=== PATIENT | female | born 1995 | race American Indian/Alaskan Native ===

== ENCOUNTER 2021-12-04 08:12 | Emergency (ER) | payer OTHER ==
[2021-12-04] MEDS ORDERED: Sodium Chloride 0.9% 10 ML Syringe FLUSH PRN (08:33)
[2021-12-04] MEDS ORDERED: Sodium Chloride 0.9% 1,000 ML IV ONE (08:33)
== END 2021-12-04 10:40 ==
LOC: JD.ED 08:12 → EDBD 08:12 → JD.ED 10:40
DX: T76.01XA Adult neglect or abandonment, suspected, initial encounter (principal); F10.10 Alcohol abuse, uncomplicated; Y90.1 Blood alcohol level of 20-39 mg/100 ml
CPT/HCPCS: 36415; 80053; 80306; 80307; 81003; 85007; 85027; 99284; J3490; J7030